=== PATIENT | female | born 1970 | race American Indian/Alaskan Native ===

== ENCOUNTER 2018-09-29 05:27 | Inpatient (IN) | payer OTHER ==
[2018-09-29 06:16] LABS: Mean Corpuscular HGB Conc 28 % (30-34); Platelet Count 443 K/mm3 (140-440); Red Blood Count 3.84 M/mm3 (3.65-5.03)
[2018-09-29 06:23] LABS: Hematocrit 19.6 % (30.3-42.9); Hemoglobin 5.4 gm/dl (10.1-14.3)
[2018-09-29 06:24] LABS: Mean Corpuscular Volume 51 fl (79-97); Red Cell Distribution Width 22.8 % (13.2-15.2)
[2018-09-29 06:26] LABS: BUN/Creatinine Ratio 20; Blood Urea Nitrogen 12 mg/dL (7-17); Calcium 8.6 mg/dL (8.4-10.2); Hemolysis Index 0
[2018-09-29] MEDS ORDERED: NACL 0.9% 500 ML 500 ML IV ONE (06:33)
[2018-09-29 06:45] LABS: Chol/HDL Ratio 4.35 %; HDL Cholesterol 34 mg/dL (40-59); LDL Cholesterol,Direct 96 mg/dL (50-130)
[2018-09-29 06:48] LABS: Total Cells Counted 100
[2018-09-29 06:49] LABS: Anisocytosis 2+; Hypochromasia 3+; Ovalocytes 2+; Poikilocytosis 2+; Stomatocytes Few; Target Cells Few; Tear Drop Cells Few
--- NOTE | 2018-09-29 07:00 | Emergency Department Report ---
ED Chest Pain HPI - General Chief Complaint: Chest Pain Stated Complaint: CP/LOLLY/BILATERAL ARM PAIN Time Seen by Provider: 09/29/18 06:30 Source: patient Mode of arrival: Ambulatory Limitations: No Limitations - History of Present Illness Initial Comments: This is a 48-year-old female presents with a history of chest burning and pressure yesterday morning. She has been chronically fatigued. She has chronic dyspnea on exertion. She denies heavy periods although this is perhaps likely. She states that her current period lasted 5 or 6 days and that she uses 2 pads a day though. She states that at 2000 she had a previous transfusion but she cannot identify the cause of her anemia. She may have a history of rheumatoid arthritis however this is not well established. She does not report that she has had GI bleeding or dysfunctional uterine bleeding per se. She does have a primary care physician but is not a medically fluent individual herself. She states that her father had a heart attack in his 50s. She has not been previously diagnosed with coronary artery disease. She is not complaining of chest pain or shortness of breath at this time. MD Complaint: chest pain Onset: during rest Pain Location: substernal Pain Radiation: other (bilateral shoulders) Severity: moderate Quality: other (above described as burning or pressure) Consistency: now resolved Improves With: nothing Worsens With: nothing Context: other (profound anemia) re: dyspnea (chronic dyspnea and fatigue) Other Symptoms: cough (occasional yellow cough) Treatments Prior to Arrival: none Aspirin use within the Past 7 Days: (0) No - Related Data Previous Rx's Medication Instructions Recorded Last Taken Type HYDROcodone/APAP 5-325 [[place] 1 each PO Q6HR PRN #20 tablet 12/01/14 Unknown Rx 5/325] Allergies Allergy/AdvReac Type Severity Reaction Status Date / Time No Known Allergies Allergy Unverified 12/01/14 06:43 Heart Score - HEART Score History: Moderately suspicious EKG: Normal Age: 45-65 Risk factors: 1-2 risk factors Troponin: 1-3x normal limit HEART Score: 4 - Critical Actions Critical Actions: 4-6 pts:12-16.6% risk of adverse cardiac event. Should be admitted ED Review of Systems ROS: Stated complaint: CP/LOLLY/BILATERAL ARM PAIN Other details as noted in HPI Constitutional: denies: chills, fever Eyes: denies: eye pain, eye discharge, vision change ENT: denies: ear pain, throat pain Respiratory: shortness of breath. denies: cough, wheezing Cardiovascular: chest pain. denies: palpitations Endocrine: no symptoms reported Gastrointestinal: denies: abdominal pain, nausea, diarrhea Genitourinary: denies: urgency, dysuria, discharge Musculoskeletal: denies: back pain, joint swelling, arthralgia Skin: denies: rash, lesions Neurological: denies: headache, weakness, paresthesias Psychiatric: denies: anxiety, depression Hematological/Lymphatic: denies: easy bleeding, easy bruising ED Past Medical Hx - Past Medical History Previous Medical History?: Yes Additional medical history: ANEMIA,LOW BLOOD - Surgical History Past Surgical History?: Yes Additional Surgical History: C/S 3X - Social History Smoking Status: Current Every Day Smoker - Medications Home Medications: Home Medications Medication Instructions Recorded Confirmed Last Taken Type HYDROcodone/APAP 5-325 [[place] 1 each PO Q6HR PRN #20 tablet 12/01/14 Unknown Rx 5/325] ED Physical Exam - General Limitations: No Limitations General appearance: alert, in no apparent distress - Head Head exam: Present: atraumatic, normocephalic - Eye Eye exam: Present: other (conjunctival pallor). Absent: scleral icterus - ENT ENT exam: Present: mucous membranes moist - Neck Neck exam: Present: normal inspection. Absent: tenderness, meningismus - Respiratory Respiratory exam: Present: normal lung sounds bilaterally. Absent: respiratory distress - Cardiovascular Cardiovascular Exam: Present: regular rate, normal rhythm. Absent: systolic murmur, diastolic murmur, rubs, gallop - GI/Abdominal GI/Abdominal exam: Present: soft, normal bowel sounds. Absent: distended, tenderness, guarding, rebound, rigid - Extremities Exam Extremities exam: Present: normal inspection - Back Exam Back exam: Present: normal inspection - Neurological Exam Neurological exam: Present: alert, oriented X3, CN II-XII intact. Absent: motor sensory deficit - Psychiatric Psychiatric exam: Present: normal affect, normal mood - Skin Skin exam: Present: warm, dry, intact, normal color. Absent: rash ED Course Vital Signs 09/29/18 09/29/18 09/29/18 05:39 06:24 06:31 Temperature 97.8 F Pulse Rate 87 77 Respiratory 20 11 L 15 Rate Blood Pressure 149/70 147/58 Blood Pressure [Left] O2 Sat by Pulse 99 100 Oximetry 09/29/18 09/29/18 09/29/18 06:32 06:40 07:15 Temperature 98.2 F Pulse Rate 84 Respiratory 16 Rate Blood Pressure 150/66 Blood Pressure 147/58 147/58 [Left] O2 Sat by Pulse 100 100 Oximetry - Reevaluation(s) Reevaluation #1: Blood bank notified as to the need for emergency transfusion 09/29/18 06:59 Reevaluation #2: Discussed with Dr. Cooper. Awaiting cardiology consultation. Transfusion is pending. 09/29/18 07:15 Reevaluation #3: Hypochromic microcytic anemia looks very chronic. Elevated troponin may be secondary to demand. Patient is also morbidly obese. Further workup is necessary with her family history. I do not think she is a good candidate for anticoagulation at this time prior to correction of her hemoglobin. My first priority will be transfusion. Further recommendations per cardiology and care per the hospitalist staff. 09/29/18 07:15 BOB score - Bob Score Age > 65: (0) No Aspirin use within the Past 7 Days: (0) No 3 or more CAD Risk Factors: (0) No 2 or more Angina events in past 24 hrs: (0) No Known CAD with more than 50% Stenosis: (0) No Elevated Cardiac Markers: (1) Yes ST Deviation Greater than 0.5mm: (0) No BOB Score: 1 ED Medical Decision Making - Lab Data Result diagrams: 09/29/18 05:49 09/29/18 05:49 Laboratory Results - last 24 hr 09/29/18 09/29/18 09/29/18 05:49 05:49 05:49 WBC 6.1 RBC 3.84 Hgb 5.4 L* Hct 19.6 L* MCV 51 L MCH 14 L MCHC 28 L RDW 22.8 H Plt Count 443 H Add Manual Diff Complete Total Counted 100 Seg Neuts % (Manual) 73.0 H Band Neutrophils % 0 Lymphocytes % (Manual) 23.0 Reactive Lymphs % (Man) 0 Monocytes % (Manual) 2.0 Eosinophils % (Manual) 1.0 Basophils % (Manual) 1.0 Metamyelocytes % 0 Myelocytes % 0 Promyelocytes % 0 Blast Cells % 0 Nucleated RBC % Not Reportable Seg Neutrophils # Man 4.5 Band Neutrophils # 0.0 Lymphocytes # (Manual) 1.4 Abs React Lymphs (Man) 0.0 Monocytes # (Manual) 0.1 Eosinophils # (Manual) 0.1 Basophils # (Manual) 0.1 Metamyelocytes # 0.0 Myelocytes # 0.0 Promyelocytes # 0.0 Blast Cells # 0.0 WBC Morphology Not Reportable Hypersegmented Neuts Not Reportable Hyposegmented Neuts Not Reportable Hypogranular Neuts Not Reportable Smudge Cells Not Reportable Toxic Granulation Not Reportable Toxic Vacuolation Not Reportable Dohle Bodies Not Reportable Pelger-Huet Anomaly Not Reportable Tanner Rods Not Reportable Platelet Estimate Appears normal Clumped Platelets Not Reportable Plt Clumps, EDTA Not Reportable Large Platelets Not Reportable Giant Platelets Not Reportable Platelet Satelliting Not Reportable Plt Morphology Comment Not Reportable RBC Morphology Not Reportable Dimorphic RBCs Not Reportable Polychromasia Not Reportable Hypochromasia 3+ Poikilocytosis 2+ Anisocytosis 2+ Microcytosis 2+ Macrocytosis Not Reportable Spherocytes Not Reportable Pappenheimer Bodies Not Reportable Sickle Cells Not Reportable Target Cells Few Tear Drop Cells Few Ovalocytes 2+ Stomatocytes Few Helmet Cells Not Reportable Stinson-[place] Bodies Not Reportable [place] Rings Not Reportable Jaren Cells Not Reportable Bite Cells Not Reportable Crenated Cell Not Reportable Elliptocytes 1+ Acanthocytes (Spur) Not Reportable Rouleaux Not Reportable Hemoglobin C Crystals Not Reportable Schistocytes Not Reportable Malaria parasites Not Reportable Foster Bodies Not Reportable Hem Pathologist Commnt No Sodium 141 Potassium 3.8 Chloride 106.6 Carbon Dioxide 22 Anion Gap 16 BUN 12 Creatinine 0.6 L Estimated GFR > 60 BUN/Creatinine Ratio 20 Glucose 101 H Calcium 8.6 Troponin T 0.248 H* Triglycerides 171 H Cholesterol 148 LDL Cholesterol Direct 96 HDL Cholesterol 34 L Cholesterol/HDL Ratio 4.35 HCG, Qual Negative - EKG Data -: EKG Interpreted by Me EKG shows normal: sinus rhythm, axis, intervals, QRS complexes, ST-T waves Rate: normal - EKG Data Interpretation: no acute changes - Radiology Data interpreted by me: Chest x-ray no acute process Critical Care Time: Yes Critical care time in (mins) excluding proc time.: 60 Critical care attestation.: If time is entered above; I have spent that time in minutes in the direct care of this critically ill patient, excluding procedure time. ED Disposition Clinical Impression: Symptomatic anemia, Elevated troponin Chest pain Qualifiers: Chest pain type: unspecified Qualified Code(s): R07.9 - Chest pain, unspecified Disposition: OP ADMIT IP TO THIS HOSP Is pt being admited?: Yes Does the pt Need Aspirin: Yes Condition: Stable Instructions: Chest Pain (ED) Referrals: FANY GARCIA [Staff Physician] - 3-5 Days Time of Disposition: 07:32
[2018-09-29] MEDS ORDERED: PROTONIX IV ONE (07:15)
[2018-09-29 07:16] LABS: INR 1.06 (0.87-1.13)
[2018-09-29 07:17] LABS: Partial Thromboplastin Time 25.7 Sec. (24.2-36.6)
[2018-09-29 07:23] LABS: Creatine Kinase MB 10.8 ng/mL (0.0-4.0)
--- NOTE | 2018-09-29 07:23 | XRay Report ---
FINAL REPORT EXAM: XR CHEST 1V AP HISTORY: hypertension TECHNIQUE: AP portable view(s) of the chest obtained. PRIORS: None. FINDINGS: No mediastinal shift. Cardiac silhouette is enlarged. No pneumothorax, effusion, or focal pulmonary o pacity identified. No acute skeletal findings. IMPRESSION: Enlarged cardiac silhouette may be due to cardiomegaly or pericardial effusion. No acute pulmonary fi nding. Consider follow-up echocardiogram.
[2018-09-29 07:24] LABS: Alanine Aminotransferase 10 units/L (7-56); Albumin 3.7 g/dL (3.9-5)
[2018-09-29 07:33] LABS: Bilirubin,Direct < 0.2 mg/dL (0-0.2)
[2018-09-29] MEDS ORDERED: BABY ASPIRIN PO ONE (07:33)
[2018-09-29 08:13] LABS: Bilirubin,Urine NEG (Negative); Blood,Urine NEG (Negative); Color,Urine Yellow (Yellow); Protein,Urine <15 mg/dL mg/dL (Negative); Urobilinogen,Urine < 2.0 mg/dL (<2.0); WBC,Urine < 1.0 /HPF (0.0-6.0)
--- NOTE | 2018-09-29 08:34 | History and Physical Report ---
History of Present Illness Date of examination: 09/29/18 Date of admission: 09/29/18 Chief complaint: chest pain generalized weakness since yesterday History of present illness: 48-year-old female patient came to the emergency room with a history of chest pain and discomfort since yesterday morning. Patient also complains of generalized weakness and fatigue and dyspnea on exertion . Denies shortness of breath or cough,.Initial workup is consistent with severe anemia, patient denies menorrhagia, but reports that she had some small fibroids in the past which was treated with hormones, no history of heavy periods No hematemesis melena no history of GI bleeding in the past,stool guaic is negative The time of my evaluation patient denies any chest pain or shortness of breath Has mild elevation of cardiac enzymes, severe anemia with hemoglobin of 5. Past History Past Medical History: anemia, other (? fibroid) Past Surgical History: Social history: smoking Family history: hypertension Medications and Allergies Allergies Allergy/AdvReac Type Severity Reaction Status Date / Time No Known Allergies Allergy Unverified 12/01/14 06:43 Home Medications Medication Instructions Recorded Confirmed Last Taken Type No Known Home Medications [No 09/29/18 09/29/18 Unknown History Reported Home Medications] Review of Systems Constitutional: fatigue, weakness, no weight loss, no weight gain Ears, nose, mouth and throat: no nasal congestion, no nasal discharge Cardiovascular: chest pain, no orthopnea, no palpitations Respiratory: no cough with sputum, no shortness of breath Gastrointestinal: no nausea, no vomiting Genitourinary Female: no pelvic pain, no dysuria Musculoskeletal: no myalgias, no arthritis Integumentary: no rash, no lesions Psychiatric: no anxiety, no depression Endocrine: no cold intolerance, no heat intolerance Hematologic/Lymphatic: no easy bruising, no easy bleeding Allergic/Immunologic: no urticaria, no allergic rhinitis Exam - Constitutional Vitals: Temp Pulse Resp BP Pulse Ox 98.2 F 84 16 150/66 100 09/29/18 06:32 09/29/18 06:32 09/29/18 06:32 09/29/18 08:00 09/29/18 08:00 General appearance: Present: no acute distress, well-nourished, obese - EENT Eyes: Present: PERRL, EOM intact - Neck Neck: Present: supple, normal ROM - Respiratory Respiratory effort: normal Respiratory: bilateral: diminished, negative: rales, rhonchi, wheezing - Cardiovascular Rhythm: regular Heart Sounds: Present: S1 & S2 - Extremities Extremities: no ischemia, No edema - Abdominal General gastrointestinal: Present: soft, non-tender, non-distended, normal bowel sounds - Integumentary Integumentary: Present: clear, warm - Musculoskeletal Musculoskeletal: strength equal bilaterally, generalized weakness - Psychiatric Psychiatric: appropriate mood/affect, cooperative - Neurologic Neurologic: CNII-XII intact, moves all extremities Results - Labs CBC & Chem 7: 09/29/18 05:49 09/29/18 05:49 Labs: Abnormal lab results 09/29/18 09/29/18 09/29/18 Range/Units 05:49 05:49 06:48 Hgb 5.4 L* (10.1-14.3) gm/dl Hct 19.6 L* (30.3-42.9) % MCV 51 L (79-97) fl MCH 14 L (28-32) pg MCHC 28 L (30-34) % RDW 22.8 H (13.2-15.2) % Plt Count 443 H (140-440) K/mm3 Seg Neuts % (Manual) 73.0 H (40.0-70.0) % Creatinine 0.6 L (0.7-1.2) mg/dL Glucose 101 H (65-100) mg/dL Total Creatine Kinase 145 H (30-135) units/L CK-MB (CK-2) 10.8 H (0.0-4.0) ng/mL CK-MB (CK-2) Rel Index 7.4 H (0-4) Troponin T 0.248 H* 0.237 H* (0.00-0.029) ng/mL Albumin 3.7 L (3.9-5) g/dL Triglycerides 171 H (2-149) mg/dL HDL Cholesterol 34 L (40-59) mg/dL Crossmatch 09/29/18 09/29/18 Range/Units 06:48 07:53 Hgb (10.1-14.3) gm/dl Hct (30.3-42.9) % MCV (79-97) fl MCH (28-32) pg MCHC (30-34) % RDW (13.2-15.2) % Plt Count (140-440) K/mm3 Seg Neuts % (Manual) (40.0-70.0) % Creatinine (0.7-1.2) mg/dL Glucose (65-100) mg/dL Total Creatine Kinase (30-135) units/L CK-MB (CK-2) (0.0-4.0) ng/mL CK-MB (CK-2) Rel Index (0-4) Troponin T 0.255 H* (0.00-0.029) ng/mL Albumin (3.9-5) g/dL Triglycerides (2-149) mg/dL HDL Cholesterol (40-59) mg/dL Crossmatch See Detail Assessment and Plan --Symptomatic Anemia; transfuse 2 units PRBC Stool guaiac negative, patient denies menorrhagia or GI problems in the past Pelvic ultrasound to rule out SUPERVISORY EXAMINER pathology --Positive cardiac enzymes/non-ST elevation WI; secondary to anemia secondary to hypoperfusion Blood transfusion, cardiology evaluation --History of anemia ; patient reports she received transfusion in the past GI, SUPERVISORY EXAMINER evaluation inpatient versus outpatient --Ongoing tobacco use; smoking cessation counseling --Obesity; advised weight reduction --DVT prophylaxis; SCD
[2018-09-29] MEDS ORDERED: TYLENOL PO PRN (08:37)
[2018-09-29] MEDS ORDERED: NACL 0.9% 500 ML 500 ML ONE (08:50)
[2018-09-29 08:57] LABS: % Iron Saturation 3.06 %
[2018-09-29] MEDS ORDERED: NACL 0.9% 1000 ML 1,000 ML IV SCH (09:00)
[2018-09-29] MEDS ORDERED: LASIX IV ONE (09:30)
[2018-09-29] MEDS ORDERED: MORPHINE IV ONE (09:32)
[2018-09-29] MEDS ORDERED: ZOFRAN IV ONE (09:32)
[2018-09-29] MEDS: PEPCID PO SCH ×2 (09:50→21:26)
--- NOTE | 2018-09-29 10:27 | Ultrasound Report ---
ULTRASOUND PELVIC COMPLETE History: Severe anemia, rule out fibroid uterus. Findings: Transabdominal ultrasound imaging was performed. The uterus is enlarged measuring 13.7 x 5.5 x 6.5 cm. No obvious large uterine fibroid is identified. The endometrial stripe measures 10 mm. There is an echogenic area in the right side of the endometrium which may represent a small polyp or thrombus. The cervix is unremarkable. The right ovary is normal. The left ovary is obscured. Impression: Mildly enlarged uterus but no obvious uterine fibroids. Echogenic focus in the endometrium of uncertain significance. This may represent a small polyp or thrombus.
--- NOTE | 2018-09-29 10:55 | Consultation ---
History of Present Illness Consult date: 09/29/18 Requesting physician: ERINN PERES Consult reason: elevated troponin History of present illness: The pt is a 48-year-old female who presented with c/o chest burning and pressure since yesterday morning. She has also been chronically fatigue and has PERKINS. She reports a history of heavy menstruation for which she has required PRBC tx in the past. She was placed on control pills to regulate this and denies any recent heavy periods. H/H on admission 5.4/19.6. She denies any recent overt s/s bleeding. She is receiving PRBC tx on evaluation. She was noted to have elevated troponin and thus cardiology has been consulted. She denies any prior cardiac issues, including CAD, AMI, HF. Past History Past Medical History: anemia Medications and Allergies Allergies Allergy/AdvReac Type Severity Reaction Status Date / Time No Known Allergies Allergy Unverified 12/01/14 06:43 Home Medications Medication Instructions Recorded Confirmed Last Taken Type No Known Home Medications [No 09/29/18 09/29/18 Unknown History Reported Home Medications] Active Meds: Active Medications Acetaminophen (Tylenol) 650 mg PO Q6H PRN PRN Reason: Pain, Mild (1-3) Famotidine (Pepcid) 20 mg PO BID [facility] Last Admin: 09/29/18 09:50 Dose: 20 mg Documented by: Ferrous Sulfate (Feosol) 325 mg PO BID [facility] Sodium Chloride (Nacl 0.9% 1000 Ml) 1,000 mls @ 75 mls/hr IV DIRECT [facility] Review of Systems Constitutional: no weight loss, no weight gain, no fever, no chills, no sweats Ears, nose, mouth and throat: no ear pain, no nose pain, no sinus pressure, no sinus pain Cardiovascular: chest pain, dyspnea on exertion, no orthopnea, no palpitations, no rapid/irregular heart beat, no edema, no syncope, no lightheadedness, no shortness of breath, no paroxysmal nocturnal dyspnea, no high blood pressure, no leg edema Respiratory: dyspnea on exertion, no cough, no shortness of breath, no congestion, no wheezing, no pain on inspiration Gastrointestinal: no abdominal pain, no nausea, no vomiting, no diarrhea, no constipation, no change in bowel habits Genitourinary Female: no pelvic pain, no flank pain, no dysuria, no urinary frequency, no urgency Musculoskeletal: no neck stiffness, no neck pain, no shooting arm pain, no arm numbness/tingling, no low back pain, no shooting leg pain Integumentary: no rash, no pruritis, no redness, no sores, no wounds Neurological: no head injury, no paralysis, no weakness, no parathesias, no numbness, no tingling, no seizures, no syncope Psychiatric: no anxiety Endocrine: no cold intolerance, no heat intolerance Hematologic/Lymphatic: no easy bruising, no easy bleeding Allergic/Immunologic: no urticaria, no wheezing Physical Examination Vital Signs Temp Pulse Resp BP Pulse Ox 97.8 F 87 20 149/70 99 09/29/18 05:39 09/29/18 05:39 09/29/18 05:39 09/29/18 05:39 09/29/18 05:39 General appearance: no acute distress HEENT: Positive: PERRL, Normocephaly, Mucus Membranes Moist Neck: Positive: neck supple, trachea midline Cardiac: Positive: Reg Rate and Rhythm, S1/S2 Lungs: Positive: clear to auscultation Neuro: Positive: Grossly Intact Abdomen: Positive: Soft. Negative: Tender Skin: Negative: Rash, Wound Musculoskeletal: No Pain Extremities: Absent: edema Results 09/29/18 05:49 09/29/18 05:49 Cardiac Enzymes 09/29/18 Range/Units 06:48 AST 26 (5-40) units/L CK-MB (CK-2) 10.8 H (0.0-4.0) ng/mL Coagulation 09/29/18 Range/Units 06:48 PT 14.5 (12.2-14.9) Sec. INR 1.06 (0.87-1.13) APTT 25.7 (24.2-36.6) Sec. Lipids 09/29/18 Range/Units 05:49 Triglycerides 171 H (2-149) mg/dL Cholesterol 148 (50-199) mg/dL HDL Cholesterol 34 L (40-59) mg/dL Cholesterol/HDL Ratio 4.35 % CBC 09/29/18 Range/Units 05:49 WBC 6.1 (4.5-11.0) K/mm3 RBC 3.84 (3.65-5.03) M/mm3 Hgb 5.4 L* (10.1-14.3) gm/dl Hct 19.6 L* (30.3-42.9) % Plt Count 443 H (140-440) K/mm3 Comprehensive Metabolic Panel 09/29/18 09/29/18 Range/Units 05:49 06:48 Sodium 141 (137-145) mmol/L Potassium 3.8 (3.6-5.0) mmol/L Chloride 106.6 (98-107) mmol/L Carbon Dioxide 22 (22-30) mmol/L BUN 12 (7-17) mg/dL Creatinine 0.6 L (0.7-1.2) mg/dL Glucose 101 H (65-100) mg/dL Calcium 8.6 (8.4-10.2) mg/dL Direct Bilirubin < 0.2 (0-0.2) mg/dL Indirect Bilirubin 0.0 mg/dL AST 26 (5-40) units/L ALT 10 (7-56) units/L Alkaline Phosphatase 65 (35-129) units/L Total Protein 6.8 (6.3-8.2) g/dL Albumin 3.7 L (3.9-5) g/dL - Imaging and Cardiology Echo: pending EKG: report reviewed, image reviewed EKG interpretations - Telemetry EKG Rhythm: Sinus Rhythm - EKG Sinus rhythms and dysrhythmias: sinus rhythm Assessment and Plan Troponin elevation likely c/w NSTEMI type II in setting of severe symptomatic anemia. PRBC tx PRN and anemia w/u per primary. Obtain echo. Cont to trend Shayy and repeat ECG in AM. The patient has been seen in conjunction with Dr. Denise Ordonez who agrees with the assessment and plan of care. - Patient Problems (1) Symptomatic anemia Current Visit: Yes Status: Acute (2) NSTEMI (non-ST elevated myocardial infarction) Current Visit: Yes Status: Acute (3) Chest pain Current Visit: Yes Status: Acute Qualifiers: Chest pain type: unspecified Qualified Code(s): R07.9 - Chest pain, unspecified
[2018-09-29] MEDS: FEOSOL PO SCH ×2 (11:05→21:26)
[2018-09-29] MEDS ORDERED: LASIX ONE (12:24)
[2018-09-29] MEDS: DILAUDID IV PRN (21:26)
[2018-09-30 06:44] LABS: Mean Corpuscular HGB Conc 29 % (30-34); Platelet Count 369 K/mm3 (140-440); Red Blood Count 4.39 M/mm3 (3.65-5.03)
[2018-09-30 06:49] LABS: Hematocrit 25.2 % (30.3-42.9); Hemoglobin 7.2 gm/dl (10.1-14.3); Mean Corpuscular Volume 57 fl (79-97); Red Cell Distribution Width 30.5 % (13.2-15.2)
[2018-09-30 06:58] LABS: BUN/Creatinine Ratio 18; Blood Urea Nitrogen 9 mg/dL (7-17); Calcium 8.5 mg/dL (8.4-10.2); Hemolysis Index 7
[2018-09-30 09:25] LABS: Band Neutrophils # (Manual) 0.4 K/mm3; Basophils % (Manual) 0 % (0.0-1.8); Total Cells Counted 100
[2018-09-30 09:26] LABS: Anisocytosis 3+; Hypochromasia 2+; Ovalocytes 1+; Poikilocytosis 2+; Target Cells Rare
[2018-09-30] MEDS: FEOSOL PO SCH ×2 (09:45→21:40)
[2018-09-30] MEDS: PEPCID PO SCH ×2 (09:45→21:40)
--- NOTE | 2018-09-30 12:55 | Progress Note ---
Assessment and Plan Troponin elevation likely c/w NSTEMI type II in setting of severe symptomatic anemia. PRBC tx PRN and anemia w/u per primary. Obtain echo. Cont to trend Shayy and repeat ECG in AM. The patient has been seen in conjunction with Dr. Denise Ordonez who agrees with the assessment and plan of care. - Patient Problems (1) Symptomatic anemia Current Visit: Yes Status: Acute (2) NSTEMI (non-ST elevated myocardial infarction) Current Visit: Yes Status: Acute (3) Chest pain Current Visit: Yes Status: Acute Subjective Date of service: 09/30/18 Interval history: Feeling better after PRBCs. Objective Vital Signs Temp Pulse Resp BP BP Pulse Ox 09/30/18 10:16 98.0 F 77 24 124/55 99 09/30/18 04:24 98.0 F 74 20 134/55 100 09/29/18 23:25 97.8 F 72 17 124/49 100 09/29/18 21:12 74 09/29/18 20:32 98.7 F 76 17 146/65 99 09/29/18 17:13 98.7 F 72 18 142/68 99 09/29/18 16:35 97.3 F L 84 18 123/52 99 09/29/18 13:59 97.7 F 18 144/72 98 09/29/18 13:12 72 - Physical Examination General: Appears Well, No Apparent Distress HEENT: Positive: PERRL, Normocephaly, Mucus Membranes Moist Neck: Positive: neck supple, trachea midline. Negative: JVD/HJR Cardiac: Positive: Regular Rate, S1/S2 Lungs: Positive: clear to auscultation, Normal Breath Sounds Neuro: Positive: Grossly Intact Abdomen: Positive: Soft, Active Bowel Sounds. Negative: Tender Skin: Negative: Rash, Wound Musculoskeletal: No Pain Extremities: Present: normal. Absent: edema - Labs and Meds CBC 09/30/18 Range/Units 05:02 WBC 7.2 (4.5-11.0) K/mm3 RBC 4.39 (3.65-5.03) M/mm3 Hgb 7.2 L (10.1-14.3) gm/dl Hct 25.2 L (30.3-42.9) % Plt Count 369 (140-440) K/mm3 Comprehensive Metabolic Panel 09/30/18 Range/Units 05:02 Sodium 140 (137-145) mmol/L Potassium 3.7 (3.6-5.0) mmol/L Chloride 106.9 (98-107) mmol/L Carbon Dioxide 22 (22-30) mmol/L BUN 9 (7-17) mg/dL Creatinine 0.5 L (0.7-1.2) mg/dL Glucose 86 (65-100) mg/dL Calcium 8.5 (8.4-10.2) mg/dL - Imaging and Cardiology EKG: report reviewed, image reviewed Echo: pending - Telemetry EKG Rhythm: Sinus Rhythm - EKG Sinus rhythms and dysrhythmias: sinus rhythm
--- NOTE | 2018-09-30 16:38 | Progress Note ---
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 --Ongoing tobacco use; smoking cessation counseling --Obesity; advised weight reduction --DVT prophylaxis; SCD Possible discharge in 1-2 days if stable History Interval history: Patient seen and examined medical records reviewed No new complaints, Received 2 Units of PRBC transfusion Alert awake oriented Vital signs noted Hospitalist Physical - Constitutional Vitals: Temp Pulse Resp BP Pulse Ox 98.2 F 75 18 135/55 99 09/30/18 14:01 09/30/18 14:01 09/30/18 14:01 09/30/18 14:01 09/30/18 14:01 General appearance: Present: no acute distress, well-nourished, obese - EENT Eyes: Present: PERRL, EOM intact - Neck Neck: Present: supple, normal ROM - Respiratory Respiratory effort: normal Respiratory: bilateral: diminished, negative: rales, rhonchi, wheezing - Cardiovascular Rhythm: regular Heart Sounds: Present: S1 & S2 - Extremities Extremities: no ischemia, No edema - Abdominal General gastrointestinal: soft, non-tender, non-distended, normal bowel sounds - Integumentary Integumentary: Present: clear, warm - Psychiatric Psychiatric: appropriate mood/affect, cooperative - Neurologic Neurologic: CNII-XII intact, moves all extremities Results - Labs CBC & Chem 7: 09/30/18 05:02 09/30/18 05:02 Labs: Laboratory Last Values WBC 7.2 K/mm3 (4.5-11.0) 09/30/18 05:02 RBC 4.39 M/mm3 (3.65-5.03) 09/30/18 05:02 Hgb 7.2 gm/dl (10.1-14.3) L 09/30/18 05:02 Hct 25.2 % (30.3-42.9) L 09/30/18 05:02 MCV 57 fl (79-97) L 09/30/18 05:02 MCH 16 pg (28-32) L 09/30/18 05:02 MCHC 29 % (30-34) L 09/30/18 05:02 RDW 30.5 % (13.2-15.2) H 09/30/18 05:02 Plt Count 369 K/mm3 (140-440) 09/30/18 05:02 Add Manual Diff Complete 09/30/18 05:02 Total Counted 100 09/30/18 05:02 Seg Neuts % (Manual) 69.0 % (40.0-70.0) 09/30/18 05:02 Band Neutrophils % 5.0 % 09/30/18 05:02 Lymphocytes % (Manual) 21.0 % (13.4-35.0) 09/30/18 05:02 Reactive Lymphs % (Man) 0 % 09/30/18 05:02 Monocytes % (Manual) 1.0 % (0.0-7.3) 09/30/18 05:02 Eosinophils % (Manual) 4.0 % (0.0-4.3) 09/30/18 05:02 Basophils % (Manual) 0 % (0.0-1.8) 09/30/18 05:02 Metamyelocytes % 0 % 09/30/18 05:02 Myelocytes % 0 % 09/30/18 05:02 Promyelocytes % 0 % 09/30/18 05:02 Blast Cells % 0 % 09/30/18 05:02 Nucleated RBC % 2.0 % (0.0-0.9) H 09/30/18 05:02 Seg Neutrophils # Man 5.0 K/mm3 (1.8-7.7) 09/30/18 05:02 Band Neutrophils # 0.4 K/mm3 09/30/18 05:02 Lymphocytes # (Manual) 1.5 K/mm3 (1.2-5.4) 09/30/18 05:02 Abs React Lymphs (Man) 0.0 K/mm3 09/30/18 05:02 Monocytes # (Manual) 0.1 K/mm3 (0.0-0.8) 09/30/18 05:02 Eosinophils # (Manual) 0.3 K/mm3 (0.0-0.4) 09/30/18 05:02 Basophils # (Manual) 0.0 K/mm3 (0.0-0.1) 09/30/18 05:02 Metamyelocytes # 0.0 K/mm3 09/30/18 05:02 Myelocytes # 0.0 K/mm3 09/30/18 05:02 Promyelocytes # 0.0 K/mm3 09/30/18 05:02 Blast Cells # 0.0 K/mm3 09/30/18 05:02 WBC Morphology Not Reportable 09/30/18 05:02 Hypersegmented Neuts Not Reportable 09/30/18 05:02 Hyposegmented Neuts Not Reportable 09/30/18 05:02 Hypogranular Neuts Not Reportable 09/30/18 05:02 Smudge Cells Not Reportable 09/30/18 05:02 Toxic Granulation Not Reportable 09/30/18 05:02 Toxic Vacuolation Not Reportable 09/30/18 05:02 Dohle Bodies Not Reportable 09/30/18 05:02 Pelger-Huet Anomaly Not Reportable 09/30/18 05:02 Tanner Rods Not Reportable 09/30/18 05:02 Platelet Estimate Appears normal 09/30/18 05:02 Clumped Platelets Not Reportable 09/30/18 05:02 Plt Clumps, EDTA Not Reportable 09/30/18 05:02 Large Platelets Not Reportable 09/30/18 05:02 Giant Platelets Not Reportable 09/30/18 05:02 Platelet Satelliting Not Reportable 09/30/18 05:02 Plt Morphology Comment Not Reportable 09/30/18 05:02 RBC Morphology Not Reportable 09/30/18 05:02 Dimorphic RBCs Not Reportable 09/30/18 05:02 Polychromasia 1+ 09/30/18 05:02 Hypochromasia 2+ 09/30/18 05:02 Poikilocytosis 2+ 09/30/18 05:02 Anisocytosis 3+ 09/30/18 05:02 Microcytosis 1+ 09/30/18 05:02 Macrocytosis Not Reportable 09/30/18 05:02 Spherocytes Not Reportable 09/30/18 05:02 Pappenheimer Bodies Not Reportable 09/30/18 05:02 Sickle Cells Not Reportable 09/30/18 05:02 Target Cells Rare 09/30/18 05:02 Tear Drop Cells Not Reportable 09/30/18 05:02 Ovalocytes 1+ 09/30/18 05:02 Stomatocytes Few 09/29/18 05:49 Helmet Cells Not Reportable 09/30/18 05:02 [place] Bodies Not Reportable 09/30/18 05:02 [place] Rings Not Reportable 09/30/18 05:02 [place] Cells Not Reportable 09/30/18 05:02 Bite Cells Not Reportable 09/30/18 05:02 Crenated Cell Not Reportable 09/30/18 05:02 Elliptocytes Few 09/30/18 05:02 Acanthocytes (Spur) Not Reportable 09/30/18 05:02 Rouleaux Not Reportable 09/30/18 05:02 Hemoglobin C Crystals Not Reportable 09/30/18 05:02 Schistocytes Not Reportable 09/30/18 05:02 Malaria parasites Not Reportable 09/30/18 05:02 Foster Bodies Not Reportable 09/30/18 05:02 Hem Pathologist Commnt No 09/30/18 05:02 PT 14.5 Sec. (12.2-14.9) 09/29/18 06:48 INR 1.06 (0.87-1.13) 09/29/18 06:48 APTT 25.7 Sec. (24.2-36.6) 09/29/18 06:48 Sodium 140 mmol/L (137-145) 09/30/18 05:02 Potassium 3.7 mmol/L (3.6-5.0) 09/30/18 05:02 Chloride 106.9 mmol/L (98-107) 09/30/18 05:02 Carbon Dioxide 22 mmol/L (22-30) 09/30/18 05:02 Anion Gap 15 mmol/L 09/30/18 05:02 BUN 9 mg/dL (7-17) 09/30/18 05:02 Creatinine 0.5 mg/dL (0.7-1.2) L 09/30/18 05:02 Estimated GFR > 60 ml/min 09/30/18 05:02 BUN/Creatinine Ratio 18 % 09/30/18 05:02 Glucose 86 mg/dL (65-100) 09/30/18 05:02 Lactic Acid 1.10 mmol/L (0.7-2.0) 09/29/18 06:48 Calcium 8.5 mg/dL (8.4-10.2) 09/30/18 05:02 Magnesium 1.90 mg/dL (1.7-2.3) 09/30/18 05:02 Iron 12 ug/dL (37-170) L 09/29/18 06:48 TIBC 392 mcg/dL (250-450) 09/29/18 06:48 % Saturation 3.06 % 09/29/18 06:48 Transferrin 337 mg/dl (192-382) 09/29/18 06:48 Total Bilirubin 0.20 mg/dL (0.1-1.2) 09/29/18 06:48 Direct Bilirubin < 0.2 mg/dL (0-0.2) 09/29/18 06:48 Indirect Bilirubin 0.0 mg/dL 09/29/18 06:48 AST 26 units/L (5-40) 09/29/18 06:48 ALT 10 units/L (7-56) 09/29/18 06:48 Alkaline Phosphatase 65 units/L (35-129) 09/29/18 06:48 Total Creatine Kinase 145 units/L (30-135) H 09/29/18 06:48 CK-MB (CK-2) 10.8 ng/mL (0.0-4.0) H 09/29/18 06:48 CK-MB (CK-2) Rel Index 7.4 (0-4) H 09/29/18 06:48 Troponin T 0.191 ng/mL (0.00-0.029) H* 09/30/18 05:02 NT-Pro-B Natriuret Pep 392.5 pg/mL (0-450) 09/29/18 06:48 Total Protein 6.8 g/dL (6.3-8.2) 09/29/18 06:48 Albumin 3.7 g/dL (3.9-5) L 09/29/18 06:48 Albumin/Globulin Ratio 1.2 % 09/29/18 06:48 Triglycerides 171 mg/dL (2-149) H 09/29/18 05:49 Cholesterol 148 mg/dL (50-199) 09/29/18 05:49 LDL Cholesterol Direct 96 mg/dL (50-130) 09/29/18 05:49 HDL Cholesterol 34 mg/dL (40-59) L 09/29/18 05:49 Cholesterol/HDL Ratio 4.35 % 09/29/18 05:49 Lipase 37 units/L (13-60) 09/29/18 06:48 TSH 1.440 mlU/mL (0.270-4.200) 09/29/18 05:49 HCG, Qual Negative (Negative) 09/29/18 05:49 Urine Color Yellow (Yellow) 09/29/18 08:06 Urine Turbidity Clear (Clear) 09/29/18 08:06 Urine pH 6.0 (5.0-7.0) 09/29/18 08:06 Ur Specific [place] 1.015 (1.003-1.030) 09/29/18 08:06 Urine Protein <15 mg/dl mg/dL (Negative) 09/29/18 08:06 Urine Glucose (UA) Neg mg/dL (Negative) 09/29/18 08:06 Urine Ketones Neg mg/dL (Negative) 09/29/18 08:06 Urine Blood Neg (Negative) 09/29/18 08:06 Urine Nitrite Neg (Negative) 09/29/18 08:06 Urine Bilirubin Neg (Negative) 09/29/18 08:06 Urine Urobilinogen < 2.0 mg/dL (<2.0) 09/29/18 08:06 Ur Leukocyte Esterase Neg (Negative) 09/29/18 08:06 Urine WBC (Auto) < 1.0 /HPF (0.0-6.0) 09/29/18 08:06 Urine RBC (Auto) 1.0 /HPF (0.0-6.0) 09/29/18 08:06 U Epithel Cells (Auto) 1.0 /HPF (0-13.0) 09/29/18 08:06 Blood Type B POSITIVE 09/29/18 06:48 Antibody Screen Negative 09/29/18 06:48 Crossmatch See Detail 09/29/18 06:48
[2018-09-30] MEDS: DILAUDID IV PRN (20:21)
[2018-10-01] MEDS: DILAUDID IV PRN (05:57)
[2018-10-01 06:12] LABS: Mean Corpuscular HGB Conc 29 % (30-34); Platelet Count 361 K/mm3 (140-440); Red Blood Count 4.47 M/mm3 (3.65-5.03)
[2018-10-01 06:14] LABS: Creatine Kinase MB 1.9 ng/mL (0.0-4.0)
[2018-10-01 06:15] LABS: BUN/Creatinine Ratio 18; Blood Urea Nitrogen 11 mg/dL (7-17); Calcium 8.7 mg/dL (8.4-10.2); Hemolysis Index 12
[2018-10-01 06:22] LABS: Hematocrit 25.5 % (30.3-42.9); Hemoglobin 7.4 gm/dl (10.1-14.3)
[2018-10-01 06:23] LABS: Mean Corpuscular Volume 57 fl (79-97)
[2018-10-01 07:08] LABS: Basophils % (Manual) 0 % (0.0-1.8); Total Cells Counted 100
[2018-10-01 07:10] LABS: Hypochromasia 2+; Target Cells Few; Tear Drop Cells Few
[2018-10-01 07:11] LABS: Platelet Estimate Consistent w Auto
[2018-10-01 07:29] VITALS: BP 130/60
[2018-10-01] MEDS: FEOSOL PO SCH (08:59)
[2018-10-01] MEDS: PEPCID PO SCH (08:59)
--- NOTE | 2018-10-01 10:19 | Progress Note ---
Assessment and Plan Troponin elevation likely c/w NSTEMI type II in setting of severe symptomatic anemia. PRBC tx PRN and anemia w/u per primary. Obtain echo. Cont to trend Shayy and repeat ECG in AM. The patient has been seen in conjunction with Dr. Denise Ordonez who agrees with the assessment and plan of care. - Patient Problems (1) Symptomatic anemia Current Visit: Yes Status: Acute (2) NSTEMI (non-ST elevated myocardial infarction) Current Visit: Yes Status: Acute Demand/supply ischemia. Troponin is trending down. (3) Chest pain Current Visit: Yes Status:improved after transfusion. May be discharged from cardiac perspective. Subjective Interval history: Feeling better after PRBCs.No chest pain. No SOB. Objective Vital Signs Temp Pulse Resp BP Pulse Ox 10/01/18 05:44 98.2 F 76 20 130/60 99 10/01/18 00:25 98.1 F 75 20 145/83 100 09/30/18 21:14 97.8 F 77 20 139/69 97 09/30/18 16:54 77 157/57 99 09/30/18 14:01 98.2 F 75 18 135/55 99 09/30/18 10:16 98.0 F 77 24 124/55 99 - Physical Examination General: Appears Well, No Apparent Distress HEENT: Positive: PERRL, Normocephaly, Mucus Membranes Moist Neck: Positive: neck supple, trachea midline. Negative: JVD/HJR Cardiac: Positive: S1/S2. Negative: S3, S4 Neuro: Positive: Grossly Intact Abdomen: Positive: Soft, Active Bowel Sounds. Negative: Tender Skin: Negative: Rash, Wound Musculoskeletal: No Pain Extremities: Present: normal. Absent: edema - Labs and Meds Cardiac Enzymes 10/01/18 Range/Units 05:30 CK-MB (CK-2) 1.9 (0.0-4.0) ng/mL CBC 10/01/18 Range/Units 05:30 WBC 7.0 (4.5-11.0) K/mm3 RBC 4.47 (3.65-5.03) M/mm3 Hgb 7.4 L (10.1-14.3) gm/dl Hct 25.5 L (30.3-42.9) % Plt Count 361 (140-440) K/mm3 Comprehensive Metabolic Panel 10/01/18 Range/Units 05:30 Sodium 140 (137-145) mmol/L Potassium 4.1 (3.6-5.0) mmol/L Chloride 106.0 (98-107) mmol/L Carbon Dioxide 22 (22-30) mmol/L BUN 11 (7-17) mg/dL Creatinine 0.6 L (0.7-1.2) mg/dL Glucose 102 H (65-100) mg/dL Calcium 8.7 (8.4-10.2) mg/dL - Imaging and Cardiology EKG: report reviewed, image reviewed Echo: report reviewed (Normal ECHO) - Telemetry EKG Rhythm: Sinus Rhythm - EKG Sinus rhythms and dysrhythmias: sinus rhythm
--- NOTE | 2018-10-01 10:41 | Discharge Summary ---
Providers - Providers Date of Admission: 09/29/18 07:35 Attending physician: SHMUEL CIFUENTES 09/29/18 07:33 Consult to Physician [CONS] Urgent Comment: A/S NOTIFIED 719 Consulting Provider: DEANDRA BELTRÁN Physician Instructions: Reason For Exam: demand AL? Primary care physician: TAMARA COLLADO Hospitalization Reason for admission: chest pain, generalized weakness, 1 day duration Condition: Stable Pertinent studies: Chest x-ray; and last cardiac silhouette cardiomegaly no acute abnormality noted Echocardiogram; EF 50-55%, normal ventricular diastolic filling Pelvic ultrasound; mildly enlarged uterus no obvious uterine fibroids echogenic focus in the endometrium uncertain significance Possible small polyp or thrombus Hospital course: 48-year-old female patient significant past medical history of anemia ongoing tobacco use admitted through emergency room for chest pain and generalized weakness of one day duration patient was initially evaluated noted to have severe anemia with hemoglobin of 5.4 The patient had history of heavy periods, Typed and crossed and transfused 2 units of PRBC with significant improvement of hemoglobin Patient was also evaluated by cardiology, his cardiac enzymes were elevated, cardiology feels that this is nonspecific consistent with non-ST elevation [place] type II in the setting of severe anemia, noncardiac, Patient's symptoms significantly improved Today she is comfortable no new complaints vital signs stable physical examination unremarkable Hemodynamically stable for discharge Advised to follow-up with [facility] [employer] to rule out [employer] causes of anemia As well as GI to rule out GI causes of anemia as outpatient The patient is hemodynamically and clinically stable at discharge Discharge diagnosis: --Symptomatic Anemia; transfused 2 units PRBC; Hb improved from 5.4 - 7.2 Stool guaiac negative, patient denies menorrhagia or GI problems in the past Pelvic ultrasound;Mildly enlarged uterus no obvious uterine fibroids Echogenic focus in the endometrium of uncertain significance probably Small polyp or thrombus --Positive cardiac enzymes/non-ST elevation [place] type 2; secondary to anemia secondary to hypoperfusion Symptoms slightly improved --History of anemia ; patient reports she received transfusion in the past GI, [employer]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 --Ongoing tobacco use; smoking cessation counseling --Obesity; advised weight reduction Disposition: DC-01 TO HOME OR SELFCARE Time spent for discharge: 31 min Core Measure Documentation - Palliative Care Palliative Care/ Comfort Measures: Not Applicable - Core Measures Any of the following diagnoses?: none Exam - Constitutional Vitals: Temp Pulse Resp BP Pulse Ox 98.2 F 76 20 130/60 99 10/01/18 05:44 10/01/18 05:44 10/01/18 05:44 10/01/18 05:44 10/01/18 05:44 General appearance: Present: no acute distress, well-nourished - EENT Eyes: Present: PERRL, EOM intact - Neck Neck: Present: supple, normal ROM - Respiratory Respiratory effort: normal Respiratory: negative: rales, rhonchi, wheezing - Cardiovascular Rhythm: regular Heart Sounds: Present: S1 & S2 - Abdominal General gastrointestinal: Present: soft, non-tender, non-distended, normal bowel sounds Plan Activity: no restrictions Diet: regular Additional Instructions: Advised to see a private GI for further evaluation of anemia[to rule out GI causes]. Advised to see private [facility] [employer] [facility] for further evaluation of anemia[to rule out [employer] causes] Follow up with: FANY GARCIA MD [Staff Physician] - 3-5 Days NISHA MOORE MD [Staff Physician] - 7 Days BORIS MEYER MD [Staff Physician] - 7 Days Forms: Work/School Release Form Prescriptions: Ferrous Sulfate [Feosol 325 MG tab] 325 mg PO BID #60 tablet Nicotine [Habitrol] 21 mg TD DAILY #30 patch
== END 2018-10-01 12:10 | disposition home or self-care (01) | DRG 281 ==
LOC: ED 05:27 → 4A 07:35
PROVIDERS: ADMIT Internal Medicine; ATTEND Internal Medicine
PROC: 30233N1 Transfusion of Nonautologous Red Blood Cells into Peripheral Vein, Percutaneous Approach (ICD-10-PCS; principal; 2018-09-29)
DX: I21.A1 Myocardial infarction type 2 (principal); Z68.41 Body mass index [BMI] 40.0-44.9, adult; D64.9 Anemia, unspecified; M06.9 Rheumatoid arthritis, unspecified; E66.01 Morbid (severe) obesity due to excess calories; N85.2 Hypertrophy of uterus; F17.200 Nicotine dependence, unspecified, uncomplicated; Z71.6 Tobacco abuse counseling; Z71.3 Dietary counseling and surveillance; Z82.49 Family history of ischemic heart disease and other diseases of the circulatory system
CPT/HCPCS: 36415; 71045; 76856; 80048; 80061; 80076; 81001; 82140; 82271; 82550; 82553; 83550; 83690; 83735; 83880; 84443; 84484; 84703; 85007; 85025; 85610; 85730; 86850; 86900; 86901; 86920; 93005; 93010; 93306; 99291; 99406; G0378; C9113; J1170; J1940; J2270; J2405; J7030; J7040; P9016

== ENCOUNTER 2019-07-23 14:27 | Emergency (ER) | payer OTHER ==
--- NOTE | 2019-07-23 14:33 | Emergency Department Report ---
Blank Doc - Documentation Documentation: 49-year-old female that presents with CP, SOB, body aches, and fever. This initial assessment/diagnostic orders/clinical plan/treatment(s) is/are subject to change based on patient's health status, clinical progression and re- assessment by fellow clinical providers in the ED. Further treatment and workup at subsequent clinical providers discretion. Patient/guardians urged not to elope from the ED as their condition may be serious if not clinically assessed and managed. Initial orders include: 1- Patient sent to [facility] for further evaluation and treatment 2- labs 3- EKG 4- CXR
[2019-07-23 15:26] LABS: Hematocrit 23.9 % (30.3-42.9); Hemoglobin 7.2 gm/dl (10.1-14.3); Mean Corpuscular HGB Conc 30 % (30-34); Platelet Count 416 K/mm3 (140-440); Red Blood Count 4.49 M/mm3 (3.65-5.03)
[2019-07-23 15:28] LABS: Mean Corpuscular Volume 53 fl (79-97)
[2019-07-23 15:29] LABS: Red Cell Distribution Width 22.7 % (13.2-15.2)
[2019-07-23 15:42] LABS: Alanine Aminotransferase 10 units/L (7-56); Albumin 3.9 g/dL (3.9-5); BUN/Creatinine Ratio 11; Blood Urea Nitrogen 8 mg/dL (7-17); Calcium 9.1 mg/dL (8.4-10.2); Hemolysis Index 3
--- NOTE | 2019-07-23 16:18 | XRay Report ---
CHEST 2 VIEWS INDICATION: Chest Pain. COMPARISON: None FINDINGS: Support devices: None. Heart: Within normal limits. Lungs/pleura: No acute air space or interstitial disease. No pneumothorax. Additional findings: None. IMPRESSION: Normal chest x-ray. Signer Name: Vinnie Olivares Jr, MD Signed: 07/23/2019 4:13 PM Workstation Name: [id number]
[2019-07-23 18:26] LABS: Anisocytosis 2+; Hypochromasia 1+; Macrocytosis 1+; Poikilocytosis 1+; Total Cells Counted 100
[2019-07-23 18:28] LABS: Large Platelets 1+; Platelet Estimate Consistent w Auto; Target Cells Rare; Tear Drop Cells Rare
[2019-07-23] MEDS ORDERED: IPRATROPIUM/ALBUTEROL SULFATE 3 ML AMPUL.NEB IH ONE (18:44)
[2019-07-23] MEDS ORDERED: KETOROLAC 30 MG/1 ML INJ IV ONE (18:45)
[2019-07-23] MEDS ORDERED: ASPIRIN 81 MG TAB CHEW PO ONE (18:45)
[2019-07-23] MEDS ORDERED: methylPREDNISolone Sod Succinate 125 MG/2 ML INJ IV ONE (18:46)
[2019-07-23 19:35] LABS: Bacteria,Urine 2+ /HPF (Negative); Bilirubin,Urine NEG (Negative); Blood,Urine NEG (Negative); Color,Urine Yellow (Yellow); Mucus,Urine FEW /HPF; Urobilinogen,Urine < 2.0 mg/dL (<2.0)
--- NOTE | 2019-07-23 19:49 | Emergency Department Report ---
- General Chief Complaint: Dyspnea/Respdistress Stated Complaint: SOB Time Seen by Provider: 07/23/19 14:32 Source: patient Mode of arrival: Wheelchair Limitations: No Limitations - History of Present Illness Initial Comments: Patient is a 49-year-old -[place] Citizen female with a history of chronic heavy tobacco smoking who presents to the ED with complaint of acute onset persistent severe diffuse body aches and pains, subjective fever of upto 102F, nasal and sinus congestion, dry cough with shortness of breath and wheezing, sore throat and lack of appetite and frontal sinus pressure and headache for the last 3 days. Patient states that she has been taking [id number] medications with no relief. Patient denies dizziness, chest pain, abdominal pain, nausea, vomit ing, diarrhea, dysuria, urinary frequency and urgency, change in vision, syncope or palpitations patient states that no one else at home has had similar symptoms. MD Complaint: fever, cough, sore throat, rhinorrhea, nasal congestion, sinus pain, other (wheezing and shortness of breath) -: Sudden, days(s) (3) Severity scale (0 -10): 5 Quality: sharp, aching Consistency: constant Improves With: nothing Worsens With: nothing Associated Symptoms: denies other symptoms, fever, chills, myalgias, headache, rhinorrhea, nasal congestion, sore throat, cough, shortness of breath. denies: stiff neck, abdominal pain, nausea, vomiting, diarrhea, dysuria, rash, confusion, weight loss, epistaxis, hoarseness, ear pain Treatments Prior to Arrival: "cold medicine" - Related Data Previous Rx's Medication Instructions Recorded Last Taken Type Nicotine [Habitrol] 21 mg TD DAILY #30 patch 10/01/18 Unknown Rx ALBUTEROL Inhaler (OR & NICU) 1 - 2 puff IH Q6H PRN #1 inh 07/23/19 Unknown Rx [ProAir HFA Inhaler] Benzonatate [Tessalon Perles] 100 mg PO Q8HR #30 capsule 07/23/19 Unknown Rx DOXYCYCLINE Hyclate [Vibramycin 100 mg PO Q12HR #20 capsule 07/23/19 Unknown Rx CAP] Ferrous Sulfate [Feosol 325 MG tab] 325 mg PO BID #60 tablet 07/23/19 Unknown Rx Ibuprofen [Motrin] 800 mg PO Q8HR PRN #24 tablet 07/23/19 Unknown Rx Prednisone [predniSONE 10 mg 10 mg PO .TAPER #21 tab.ds.pk 07/23/19 Unknown Rx (6-Day Pack, 21 Tabs)] Allergies Allergy/AdvReac Type Severity Reaction Status Date / Time No Known Allergies Allergy Unverified 12/01/14 06:43 ED Review of Systems ROS: Stated complaint: SOB Other details as noted in HPI Constitutional: chills, fever, malaise Eyes: denies: eye pain, eye discharge, vision change ENT: throat pain, congestion. denies: ear pain Respiratory: cough, shortness of breath, wheezing Cardiovascular: denies: chest pain, palpitations Endocrine: no symptoms reported. denies: excessive sweating, flushing Gastrointestinal: denies: abdominal pain, nausea, vomiting, diarrhea Genitourinary: denies: urgency, dysuria, discharge Musculoskeletal: back pain, arthralgia, myalgia. denies: joint swelling Skin: denies: rash, lesions Neurological: headache. denies: weakness, paresthesias Psychiatric: denies: anxiety, depression Hematological/Lymphatic: denies: easy bleeding, easy bruising ED Past Medical Hx - Past Medical History Previous Medical History?: No Additional medical history: ANEMIA,LOW BLOOD - Surgical History Past Surgical History?: Yes Additional Surgical History: C section - Social History Smoking Status: Never Smoker Substance Use Type: None - Medications Home Medications: Home Medications Medication Instructions Recorded Confirmed Last Taken Type Nicotine [Habitrol] 21 mg TD DAILY #30 patch 10/01/18 Unknown Rx ALBUTEROL Inhaler (OR & NICU) 1 - 2 puff IH Q6H PRN #1 inh 07/23/19 Unknown Rx [ProAir HFA Inhaler] Benzonatate [Tessalon Perles] 100 mg PO Q8HR #30 capsule 07/23/19 Unknown Rx DOXYCYCLINE Hyclate [Vibramycin 100 mg PO Q12HR #20 capsule 07/23/19 Unknown Rx CAP] Ferrous Sulfate [Feosol 325 MG tab] 325 mg PO BID #60 tablet 07/23/19 Unknown Rx Ibuprofen [Motrin] 800 mg PO Q8HR PRN #24 tablet 07/23/19 Unknown Rx Prednisone [predniSONE 10 mg 10 mg PO .TAPER #21 tab.ds.pk 07/23/19 Unknown Rx (6-Day Pack, 21 Tabs)] ED Physical Exam - General Limitations: No Limitations General appearance: alert, in no apparent distress - Head Head exam: Present: atraumatic, normocephalic, normal inspection - Eye Eye exam: Present: normal appearance, PERRL, EOMI Pupils: Present: normal accommodation - ENT ENT exam: Present: normal orophraynx, mucous membranes moist, TM's normal bilaterally, normal external ear exam, other (grossly congested nasal passages) - Neck Neck exam: Present: normal inspection, full ROM. Absent: tenderness, lymphadenopathy - Respiratory Respiratory exam: Present: wheezes (mildly diffuse coarse wheezes throughout). Absent: respiratory distress, rales, rhonchi, chest wall tenderness, accessory muscle use, decreased breath sounds, prolonged expiratory - Cardiovascular Cardiovascular Exam: Present: normal rhythm, tachycardia, normal heart sounds. Absent: systolic murmur, diastolic murmur, rubs, gallop - GI/Abdominal GI/Abdominal exam: Present: soft, normal bowel sounds. Absent: tenderness, hyperactive bowel sounds, hypoactive bowel sounds, organomegaly - Extremities Exam Extremities exam: Present: normal inspection, full ROM, normal capillary refill - Back Exam Back exam: Present: normal inspection, full ROM. Absent: tenderness, CVA ten derness (R), CVA tenderness (L), muscle spasm, paraspinal tenderness - Neurological Exam Neurological exam: Present: alert, oriented X3, CN II-XII intact, normal gait, reflexes normal - Psychiatric Psychiatric exam: Present: normal affect, normal mood - Skin Skin exam: Present: warm, dry, intact, normal color. Absent: rash ED Course Vital Signs 07/23/19 07/23/19 14:32 19:17 Temperature 98 F Pulse Rate 109 H Respiratory 18 19 Rate Blood Pressure 137/72 O2 Sat by Pulse 100 Oximetry ED Medical Decision Making - Lab Data Result diagrams: 07/23/19 14:43 07/23/19 14:43 - EKG Data EKG shows normal: sinus rhythm Rate: normal - EKG Data Interpretation: normal EKG 07/23/19 19:50 The EKG shows normal sinus rhythm with a ventricular rate of 99 beats a minute, no ST or T-wave abnormalities. - Radiology Data Radiology results: report reviewed, image reviewed Chest x-ray shows no acute cardiopulmonary abnormalities or pneumonitis. - Medical Decision Making This is a 49-year-old female with a history of chronic tobacco abuse who presented to the ED with nasal and sinus congestion, frontal sinus pressure and headache, sore throat, subjective fever and chills, dry cough with wheezing and shortness of breath and diffuse body aches and pains for the last 3 days. In th e ED, patient is alert and oriented 3 and is not in distress, but tachycardic and afebrile in triage. Chest x-ray shows no acute cardiopulmonary abnormalities or pneumonitis. EKG shows normal sinus rhythm with a ventricular rate of 99 bpm, and no ST or T-wave abnormalities. Lab test results were reviewed and are nonactionable except for baseline chronic iron deficiency anemia characterized by H&H of 7.2 and 23.9. Patient was treated in the ED with aspirin, also given Solu-Medrol 125 mg IV 1, and DuoNeb treatment 1. On reevaluation, the wheezing has resolved and patient was discharged home on medications and advised to follow-up with her primary care physician in 7-10 days for reevaluation. Patient was encouraged in the presence of her primary to consider quitting tobacco smoking. Patient verbalized understanding and promise to quit. Patient was advised to return to the ED immediately if symptoms get worse. - Differential Diagnosis Acute URI; Bronchitis; Pneumonia; Reactive Airway disease; Flu Critical care attestation.: If time is entered above; I have spent that time in minutes in the direct care of this critically ill patient, excluding procedure time. ED Disposition Clinical Impression: Acute upper respiratory infection, Acute non-recurrent frontal sinusitis, Chronic iron deficiency anemia Acute bronchitis Qualifiers: Bronchitis organism: other organism Qualified Code(s): J20.8 - Acute bronchitis due to other specified organisms Disposition: DC-01 TO HOME OR SELFCARE Is pt being admited?: No Does the pt Need Aspirin: No Condition: Stable Instructions: Acute Bronchitis (ED), Upper Respiratory Infection (ED), Iron Deficiency Anemia (ED), Acute Bacterial Rhinosinusitis (ED), How to Stop Smoking (ED) Additional Instructions: Take medication with food, drink plenty of fluids and follow-up with your primary care physician in 5-7 days for reevaluation. Return to the ED immediately if symptoms get worse. Consider quitting tobacco smoking. Prescriptions: Ferrous Sulfate [Feosol 325 MG tab] 325 mg PO BID #60 tablet Ibuprofen [Motrin] 800 mg PO Q8HR PRN #24 tablet PRN Reason: Pain , Severe (7-10) Prednisone [predniSONE 10 mg (6-Day Pack, 21 Tabs)] 10 mg PO .TAPER #21 tab.ds.pk ALBUTEROL Inhaler (OR & NICU) [ProAir HFA Inhaler] 1 - 2 puff IH Q6H PRN #1 inh PRN Reason: Dyspnea Benzonatate [Tessalon Perles] 100 mg PO Q8HR #30 capsule DOXYCYCLINE Hyclate [Vibramycin CAP] 100 mg PO Q12HR #20 capsule Referrals: [facility] [Outside] - 7-10 days Forms: Work/School Release Form(ED) Time of Disposition: 20:09 Print Language: GREEK
[2019-07-23 20:17] VITALS: BP 114/70
== END 2019-07-23 20:24 | disposition home or self-care (01) ==
LOC: ED 14:27
DX: J20.8 Acute bronchitis due to other specified organisms (principal); J01.10 Acute frontal sinusitis, unspecified; J06.9 Acute upper respiratory infection, unspecified; D50.9 Iron deficiency anemia, unspecified; G89.29 Other chronic pain
CPT/HCPCS: 36415; 71046; 80053; 81001; 84484; 84703; 85007; 85025; 93005; 93010; 94640; 96374; 96375; 99284; J1885; J2930

== ENCOUNTER 2021-12-09 10:19 | Emergency (ER) | payer SELFPAY ==
[2021-12-09] MEDS ORDERED: MORPHINE 4 MG/1 ML INJ IV ONE (12:57)
[2021-12-09] MEDS ORDERED: ONDANSETRON 4 MG/2 ML INJ IV ONE (12:57)
[2021-12-09] MEDS ORDERED: SODIUM CHLORIDE 0.9% 1000 ML 1,000 ML IV ONE (12:57)
[2021-12-09 13:24] VITALS: BP 140/96
[2021-12-09 13:45] LABS: Bacteria,Urine 1+ /HPF (Negative); Bilirubin,Urine NEG (Negative); Blood,Urine NEG (Negative); Color,Urine Yellow (Yellow); Mucus,Urine FEW /HPF; Protein,Urine <15 mg/dL mg/dL (Negative); RBC,Urine < 1.0 /HPF (0.0-6.0); Urobilinogen,Urine < 2.0 mg/dL (<2.0)
[2021-12-09 13:56] LABS: WBC,Urine < 1.0 /HPF (0.0-6.0)
[2021-12-09] MEDS ORDERED: HYDROmorphone 1 MG/1 ML INJ IV ONE (14:29)
[2021-12-09 15:22] LABS: Hematocrit 28.1 % (30.3-42.9); Hemoglobin 8.8 gm/dl (10.1-14.3); Mean Corpuscular HGB Conc 31 % (30-34); Platelet Count 448 K/mm3 (140-440); Red Blood Count 4.91 M/mm3 (3.65-5.03)
[2021-12-09 15:36] LABS: Alanine Aminotransferase 8 units/L (7-56); Albumin 4.1 g/dL (3.9-5); Blood Urea Nitrogen 10 mg/dL (7-17); Calcium 8.8 mg/dL (8.4-10.2); Hemolysis Index 5
[2021-12-09 15:37] LABS: BUN/Creatinine Ratio 17
[2021-12-09 16:07] LABS: Mean Corpuscular Volume 57 fl (79-97); Red Cell Distribution Width 22.4 % (13.2-15.2)
--- NOTE | 2021-12-09 16:16 | Emergency Department Report ---
ED Abdominal Pain HPI - General Chief Complaint: Abdominal Pain Stated Complaint: LEFT SIDE BACK/FOOT PAIN Time Seen by Provider: 12/09/21 12:52 Source: patient Mode of arrival: Ambulatory Limitations: No Limitations - History of Present Illness Initial Comments: This is a 51-year-old female nontoxic, well nourished in appearance, no acute signs of distress presents to the ED with c/o of nausea and abdominal pain several days. Patient denies any vomiting. Patient describes abdominal pain as cramping and aching with level of 8/10 to lower abdomen with radiation to her back. Patient denies chest pain, short of breath, fever, hemoptysis, blood in stool, chills, headache, stiff neck, numbness or tingling. Patient denies any diarrhea or constipation. Denies any blood in stool. Patient denies any recent travels. Denies any urinary symptoms. Patient denies any drug allergies. MD Complaint: abdominal pain -: days(s) Location: LLQ, RLQ Radiation: back Migration to: no migration Severity: mild Severity scale (0 -10): 8 Quality: cramping Consistency: intermittent Improves With: nothing Worsens With: nothing Associated Symptoms: nausea. denies: vomiting, diarrhea, fever, chills, constipation, dysuria, hematemesis, hematochezia, melena, hematuria, anorexia, syncope - Related Data Previous Rx's Medication Instructions Recorded Last Taken Type Nicotine [Habitrol] 21 mg TD DAILY #30 patch 10/01/18 Unknown Rx Albuterol Mdi (or & Nicu Only) 1 - 2 puff IH Q6H PRN #1 inh 07/23/19 Unknown Rx [ProAir HFA Inhaler] Benzonatate [Tessalon Perles] 100 mg PO Q8HR #30 capsule 07/23/19 Unknown Rx DOXYCYCLINE Hyclate [Vibramycin 100 mg PO Q12HR #20 capsule 07/23/19 Unknown Rx CAP] Ferrous Sulfate [Feosol 325 MG tab] 325 mg PO BID #60 tablet 07/23/19 Unknown Rx Ibuprofen [Motrin] 800 mg PO Q8HR PRN #24 tablet 07/23/19 Unknown Rx Prednisone [predniSONE 10 mg 10 mg PO .TAPER #21 tab.ds.pk 07/23/19 Unknown Rx (6-Day Pack, 21 Tabs)] Dicyclomine [Bentyl] 20 mg PO BID PRN #12 tablet 12/09/21 Unknown Rx Ondansetron [Zofran Odt] 4 mg PO Q8HR PRN #12 tab.rapdis 12/09/21 Unknown Rx Allergies Allergy/AdvReac Type Severity Reaction Status Date / Time No Known Allergies Allergy Verified 12/09/21 13:25 ED Review of Systems ROS: Stated complaint: LEFT SIDE BACK/FOOT PAIN Other details as noted in HPI Comment: All other systems reviewed and negative Constitutional: denies: chills, fever Eyes: denies: eye pain, eye discharge, vision change ENT: denies: ear pain, throat pain Respiratory: denies: cough, shortness of breath, wheezing Cardiovascular: denies: chest pain, palpitations Endocrine: no symptoms reported Gastrointestinal: abdominal pain, nausea. denies: vomiting, diarrhea, consti pation, hematemesis, melena, hematochezia Genitourinary: denies: urgency, dysuria, discharge Musculoskeletal: back pain. denies: joint swelling, arthralgia Skin: denies: rash, lesions Neurological: denies: headache, weakness, paresthesias Psychiatric: denies: anxiety, depression Hematological/Lymphatic: denies: easy bleeding, easy bruising ED Past Medical Hx - Past Medical History Additional medical history: ANEMIA,LOW BLOOD - Surgical History Additional Surgical History: C section - Social History Smoking Status: Never Smoker Substance Use Type: None - Medications Home Medications: Home Medications Medication Instructions Recorded Confirmed Last Taken Type Nicotine [Habitrol] 21 mg TD DAILY #30 patch 10/01/18 12/09/21 Unknown Rx Albuterol Mdi (or & Nicu Only) 1 - 2 puff IH Q6H PRN #1 inh 07/23/19 12/09/21 Unknown Rx [ProAir HFA Inhaler] Benzonatate [Tessalon Perles] 100 mg PO Q8HR #30 capsule 07/23/19 12/09/21 Unknown Rx DOXYCYCLINE Hyclate [Vibramycin 100 mg PO Q12HR #20 capsule 07/23/19 12/09/21 Un known Rx CAP] Ferrous Sulfate [Feosol 325 MG tab] 325 mg PO BID #60 tablet 07/23/19 12/09/21 Unknown Rx Ibuprofen [Motrin] 800 mg PO Q8HR PRN #24 tablet 07/23/19 12/09/21 Unknown Rx Prednisone [predniSONE 10 mg 10 mg PO .TAPER #21 tab.ds.pk 07/23/19 12/09/21 Unknown Rx (6-Day Pack, 21 Tabs)] Dicyclomine [Bentyl] 20 mg PO BID PRN #12 tablet 12/09/21 Unknown Rx Ondansetron [Zofran Odt] 4 mg PO Q8HR PRN #12 tab.rapdis 12/09/21 Unknown Rx ED Physical Exam - General Limitations: No Limitations General appearance: alert, in no apparent distress - Head Head exam: Present: atraumatic, normocephalic - Eye Eye exam: Present: normal appearance - ENT ENT exam: Present: normal exam, normal orophraynx - Neck Neck exam: Present: normal inspection, full ROM. Absent: lymphadenopathy - Respiratory Respiratory exam: Present: normal lung sounds bilaterally. Absent: respiratory distress, wheezes, rales, rhonchi, stridor, chest wall tenderness, accessory muscle use, decreased breath sounds, prolonged expiratory - Cardiovascular Cardiovascular Exam: Present: regular rate, normal rhythm, normal heart sounds. Absent: bradycardia, tachycardia, irregular rhythm, systolic murmur, diastolic murmur, rubs, gallop - GI/Abdominal GI/Abdominal exam: Present: soft, tenderness (lower abdomen bilateral), normal bowel sounds. Absent: distended, guarding, rebound, rigid, diminished bowel sounds - Extremities Exam Extremities exam: Present: normal inspection, full ROM, normal capillary refill. Absent: tenderness - Back Exam Back exam: Present: normal inspection, full ROM. Absent: tenderness, CVA tenderness (R), CVA tenderness (L), muscle spasm, paraspinal tenderness, vertebral tenderness, rash noted - Neurological Exam Neurological exam: Present: alert, oriented X3, normal gait - Psychiatric Psychiatric exam: Present: normal affect, normal mood - Skin Skin exam: Present: warm, dry, intact, normal color. Absent: rash ED Course Vital Signs 12/09/21 12/09/21 12:16 13:22 Temperature 98 F 97.9 F Pulse Rate 78 78 Respiratory 16 20 Rate Blood Pressure 142/77 140/96 [Left] O2 Sat by Pulse 100 99 Oximetry - Reevaluation(s) Reevaluation #1: 12/09/21 16:15 Patient is speaking in full sentences with no signs of distress noted. ED Medical Decision Making - Lab Data Result diagrams: 12/09/21 14:53 12/09/21 14:53 Lab Results 12/09/21 12/09/21 12/09/21 Range/Units 13:10 14:53 14:53 WBC 6.3 (4.5-11.0) K/mm3 RBC 4.91 (3.65-5.03) M/mm3 Hgb 8.8 L (10.1-14.3) gm/dl Hct 28.1 L (30.3-42.9) % MCV 57 L (79-97) fl MCH 18 L (28-32) pg MCHC 31 (30-34) % RDW 22.4 H (13.2-15.2) % Plt Count 448 H (140-440) K/mm3 Sodium 141 (137-145) mmol/L Potassium 4.1 (3.6-5.0) mmol/L Chloride 107.2 H (98-107) mmol/L Carbon Dioxide 22 (22-30) mmol/L Anion Gap 16 mmol/L BUN 10 (7-17) mg/dL Creatinine 0.6 (0.6-1.2) mg/dL Estimated GFR > 60 ml/min BUN/Creatinine Ratio 17 % Glucose 77 (65-100) mg/dL Calcium 8.8 (8.4-10.2) mg/dL Total Bilirubin 0.20 (0.1-1.2) mg/dL AST 12 (5-40) units/L ALT 8 (7-56) units/L Alkaline Phosphatase 66 (35-129) units/L Total Protein 6.6 (6.3-8.2) g/dL Albumin 4.1 (3.9-5) g/dL Albumin/Globulin Ratio 1.6 % Lipase 126 H (13-60) units/L HCG, Qual (Negative) Urine Color Yellow (Yellow) Urine Turbidity Clear (Clear) Urine pH 7.0 (5.0-7.0) Ur Specific [place] 1.013 (1.003-1.030) Urine Protein <15 mg/dl (Negative) mg/dL Urine Glucose (UA) Neg (Negative) mg/dL Urine Ketones Neg (Negative) mg/dL Urine Blood Neg (Negative) Urine Nitrite Neg (Negative) Urine Bilirubin Neg (Negative) Urine Urobilinogen < 2.0 (<2.0) mg/dL Ur Leukocyte Esterase Neg (Negative) Urine WBC (Auto) < 1.0 (0.0-6.0) /HPF Urine RBC (Auto) < 1.0 (0.0-6.0) /HPF U Epithel Cells (Auto) 10.0 (0-13.0) /HPF Urine Bacteria (Auto) 1+ (Negative) /HPF Urine Mucus Few /HPF 12/09/21 Range/Units 14:53 WBC (4.5-11.0) K/mm3 RBC (3.65-5.03) M/mm3 Hgb (10.1-14.3) gm/dl Hct (30.3-42.9) % MCV (79-97) fl MCH (28-32) pg MCHC (30-34) % RDW (13.2-15.2) % Plt Count (140-440) K/mm3 Sodium (137-145) mmol/L Potassium (3.6-5.0) mmol/L Chloride (98-107) mmol/L Carbon Dioxide (22-30) mmol/L Anion Gap mmol/L BUN (7-17) mg/dL Creatinine (0.6-1.2) mg/dL Estimated GFR ml/min BUN/Creatinine Ratio % Glucose (65-100) mg/dL Calcium (8.4-10.2) mg/dL Total Bilirubin (0.1-1.2) mg/dL AST (5-40) units/L ALT (7-56) units/L Alkaline Phosphatase (35-129) units/L Total Protein (6.3-8.2) g/dL Albumin (3.9-5) g/dL Albumin/Globulin Ratio % Lipase (13-60) units/L HCG, Qual Negative (Negative) Urine Color (Yellow) Urine Turbidity (Clear) Urine pH (5.0-7.0) Ur Specific [place] (1.003-1.030) Urine Protein (Negative) mg/dL Urine Glucose (UA) (Negative) mg/dL Urine Ketones (Negative) mg/dL Urine Blood (Negative) Urine Nitrite (Negative) Urine Bilirubin (Negative) Urine Urobilinogen (<2.0) mg/dL Ur Leukocyte Esterase (Negative) Urine WBC (Auto) (0.0-6.0) /HPF Urine RBC (Auto) (0.0-6.0) /HPF U Epithel Cells (Auto) (0-13.0) /HPF Urine Bacteria (Auto) (Negative) /HPF Urine Mucus /HPF - Radiology Data CT abdomen pelvis w con INDICATION / CLINICAL INFORMATION: abd pain. TECHNIQUE: Axial CT images were obtained through the abdomen and pelvis after 100 cc of Omnipaque [address] scans at this location are performed using CT dose reduction for ALARA by means of automated exposure control. COMPARISON: None available. FINDINGS: LOWER CHEST: No significant abnormality LIVER: Hepatomegaly versus Stan's configuration. No focal lesion. GAL LBLADDER/BILIARY TREE: No significant abnormality PANCREAS: No significant abnormality SPLEEN: No significant abnormality ADRENALS: No significant abnormality RIGHT KIDNEY / URETER: No significant abnormality LEFT KIDNEY / URETER: No significant abnormality URINARY BLADDER: No significant abnormality REPRODUCTIVE ORGANS: Uterine fibroids. There is endometrial fluid/thickening and small volume free fluid in the pelvis, likely physiologic in this young patient. No suspicious adnexal mass. STOMACH / BOWEL: Small bowel is normal in caliber. The colon is unremarkable. The appendix is normal in caliber. LYMPH NODES: Soft tissue mass with central hypoattenuation, possibly reflecting necrosis, located within the retrocaval region, measuring 3.2 x 1.8 cm transaxially and 3.3 cm in craniocaudal dimension. VASCULATURE: No significant abnormality. OTHER: No free air, free fluid, or focal fluid collection is identified. SKELETAL SYSTEM: No acute osseous findings. IMPRESSION: 1. Indeterminate retrocaval soft tissue mass. This is of uncertain etiology but could reflect a centrally necrotic lymph node, though other benign and malignant etiologies are not excluded. Recommend further evaluation with MRI with and without contrast. 2. No acute findings of the abdomen or pelvis. 3. Endometrial fluid/thickening with trace free fluid in the pelvis, likely physiologic in this age group. 4. Other incidental findings as above. Signer Name: Edi Luna MD Signed: 12/09/2021 4:05 PM Workstation Name: [id number] - Medical Decision Making This is a 51-year-old female that presents with abdominal pain with nausea. Patient is stable and was examined by me. Labs obtained. UA obtained. CT of abdomen obtained and dictated by the radiologist. Patient is notified of the report with no questions noted by the patient and was educated on the importance to see a primary care provider for the abnormal CT results. Vital signs are stable prior to discharge. Patient received medical treatment in the ED which patient stated symptoms has resovled and subsided. Was instructed note to operate any machinery due to possible drowsiness and stated someone will drive the patient home. A by mouth challenge has been obtained and patient tolerated well with no nausea vomiting. Patient was notified of strict precatuions of appendictis symptoms and to return to the ED if symptoms occurs as soon as possible. Patient was also instructed to Follow-up with a primary care doctor in 3-5 days or if symptoms worsen and continue return to emergency room as soon as possible. At time of discharge, the patient does not seem toxic or ill in appearance. No acute signs of distress noted. Patient agrees to discharge treatment plan of care. No further questions noted by the patient. Critical care attestation.: If time is entered above; I have spent that time in minutes in the direct care of this critically ill patient, excluding procedure time. ED Disposition Clinical Impression: Nausea Abdominal pain Qualifiers: Abdominal location: lower abdomen, unspecified Qualified Code(s): R10.30 - Lower abdominal pain, unspecified Back pain Qualifiers: Back pain location: low back pain Chronicity: chronic Back pain laterality: unspecified Sciatica presence: unspecified whether sciatica present Qualified Code(s): M54.50 - Low back pain, unspecified Disposition: 01 HOME / SELF CARE / HOMELESS Is pt being admited?: No Does the pt Need Aspirin: No Condition: Stable Instructions: Abdominal Pain (ED) Additional Instructions: Follow-up with a primary care and pulling unit floorhand doctor in 3-5 days or if symptoms worsen and continue return to emergency room as soon as possible. Prescriptions: Dicyclomine [Bentyl] 20 mg PO BID PRN #12 tablet PRN Reason: abdominal pain Ondansetron [Zofran Odt] 4 mg PO Q8HR PRN #12 tab.rapdis PRN Reason: Nausea Referrals: FANY GARCIA MD [Primary Care Provider] - 3-5 Days PRIMARY CARE, [Referring] - 3-5 Days [facility] [Provider Group] - 3-5 Days Time of Disposition: 17:11
--- NOTE | 2021-12-09 17:10 | Cat Scan Report ---
CT abdomen pelvis w con INDICATION / CLINICAL INFORMATION: abd pain. TECHNIQUE: Axial CT images were obtained through the abdomen and pelvis after 100 cc of Omnipaque [address] scans at this location are performed using CT dose reduction for ALARA by means of automated exposure control. COMPARISON: None available. FINDINGS: LOWER CHEST: No significant abnormality LIVER: Hepatomegaly versus Stan's configuration. No focal lesion. GALLBLADDER/BILIARY TREE: No significant abnormality PANCREAS: No significant abnormality SPLEEN: No significant abnormality ADRENALS: No significant abnormality RIGHT KIDNEY / URETER: No significant abnormality LEFT KIDNEY / URETER: No significant abnormality URINARY BLADDER: No significant abnormality REPRODUCTIVE ORGANS: Uterine fibroids. There is endometrial fluid/thickening and small volume free fl uid in the pelvis, likely physiologic in this young patient. No suspicious adnexal mass. STOMACH / BOWEL: Small bowel is normal in caliber. The colon is unremarkable. The appendix is normal in caliber. LYMPH NODES: Soft tissue mass with central hypoattenuation, possibly reflecting necrosis, located wit hin the retrocaval region, measuring 3.2 x 1.8 cm transaxially and 3.3 cm in craniocaudal dimension. VASCULATURE: No significant abnormality. OTHER: No free air, free fluid, or focal fluid collection is identified. SKELETAL SYSTEM: No acute osseous findings. IMPRESSION: 1. Indeterminate retrocaval soft tissue mass. This is of uncertain etiology but could reflect a centr ally necrotic lymph node, though other benign and malignant etiologies are not excluded. Recommend fu rther evaluation with MRI with and without contrast. 2. No acute findings of the abdomen or pelvis. 3. Endometrial fluid/thickening with trace free fluid in the pelvis, likely physiologic in this age g roup. 4. Other incidental findings as above. Signer Name: Edi Luna MD Signed: 12/09/2021 5:05 PM Workstation Name: [id number]
[2021-12-09 17:58] LABS: Basophils % (Manual) 0 % (0.0-1.8); Total Cells Counted 100
[2021-12-09 17:59] LABS: Anisocytosis 2+; Hypochromasia 1+; Large Platelets 1+; Macrocytosis 1+; Platelet Estimate Consistent w Auto; Poikilocytosis 1+; Target Cells 1+
== END 2021-12-09 17:31 | disposition home or self-care (01) ==
LOC: ED 10:19
DX: R10.31 Right lower quadrant pain (principal); R10.32 Left lower quadrant pain; R11.0 Nausea; M54.50 Low back pain, unspecified; Z98.890 Other specified postprocedural states; Z79.899 Other long term (current) drug therapy
CPT/HCPCS: 36415; 74177; 80053; 81001; 83690; 84703; 85007; 85025; 96361; 96374; 96375; 99284; J1170; J2270; J2405; J7030; Q9967